=== PATIENT | female | born 1940 | race Caucasian/White ===

== ENCOUNTER 2023-03-19 15:21 | Inpatient (IN) | payer OTHER, SELFPAY ==
[2023-03-19] VITALS (29 sets, daily range): BP systolic 105–170; BP diastolic 46–124; PULSE 2–92; BMI 41.4
--- NOTE | 2023-03-19 13:00 | ED.GENMED ---
History of Present Illness
General
Chief Complaint: Chest Pain
Source: patient
Exam Limitations: none
Time Seen by Provider: 03/19/23 13:00
Nursing documentation reviewed up to this point in time: agreed with
History of Present Illness
History of Present Illness:
82-year-old female presents emergency complaining of chest pain. She has had chest pain ongoing, but it is worse with exertion. She was seen at endocrinology office who noted low blood pressure and' EKG changes'. She follows with Dr. Bolanos, and
has a history of coronary artery disease, and has had stents placed in the past. She does not take any blood thinners. She takes aspirin, but did not take it today.
Past History
Past History
ED Past Medical History: CAD (1 stent), HTN, IDDM and Other (fracture distal left fibula with 'it didn't heal properly.')
ED Past Surgical History: and Gynecological
Social History
Tobacco: Non-smoker
Alcohol: None
Drug: None
Personal:
Living: with family
Employment: Employed
Family History
Family History: Other (Noncontributory)
Review of Systems
Review of Systems
Allergies reviewed?: Yes
All Other Systems: Not applicable
Constitutional: Reports no symptoms
EENT: Reports no symptoms
Respiratory: Reports no symptoms
Cardiac: Reports chest pain
ABD/GI: Reports no symptoms
: Reports no symptoms
Musculoskeletal: Reports no symptoms
Skin: Reports no symptoms
Neurological: Reports no symptoms
Endocrine: Reports no symptoms
Hematologic/Lymphatic: Reports no symptoms
Psychiatric: Reports no symptoms
Phy Exam
Physical Exam
Physical Exam:
Physical Exam
General: Afebrile, blood pressure 111/47
Neck: supple. no meningeal signs. normal posterior pharynx
Heart: s1/s2 regular rate and rhythm, no murmur. equal radial
pulses.
HEENT: Pupils equal round reactive to light, EOMI
Lungs: no acute respiratory distress. clear bilaterally
Abdomen: normal bowel sounds. not tender. no CVAT
Neuro: alert and oriented. no focal neurological deficits cranial nerves II through XII intact
Skin: no rash
Psychiatric: well kept. interactive and cooperative
Extremities: no edema. no calf tenderness. negative homans. good distal pulses
Scores
Heart Score for Chest Pain Patients
STEMI patient?: Yes
Course
Orders/Labs/Results
Orders:
Orders
03/19/23 12:46
EKG [Electrocardiogram (*1)] Urgent
Reason for Study: Chest Pain
03/19/23 12:47
EKG- Treatment ONCE
03/19/23 12:57
Complete Blood Count/With Diff Urgent
Comprehensive Metabolic Panel Urgent
NT-proBNP Urgent
PTT Urgent
Troponin I Urgent
03/19/23 13:02
Fentanyl Citrate/Pf [Sublimaze] 100 mcg .ROUTE .STK-MED ONE
Midazolam HCl [Versed] 2 mg .ROUTE .STK-MED ONE
03/19/23 13:06
CXR [CR Chest Portable - 1 View] Routine
Comment:
Reason For Exam: pre MRI
Reason Study Needs to be Portable: Unable to Transport
Abnormal Lab Results
03/19/23
12:57
BUN 33 H mg/dl
(7-17)
Creatinine 1.2 H mg/dL
(0.6-1.0)
Glucose 169 H mg/dl
(70-99)
AST 72 H U/L
(14-36)
ALT 44 H U/L
(0-35)
Alkaline Phosphatase 139 H U/L
(38-126)
Total Protein 6.1 L g/dl
(6.3-8.2)
03/19/23 12:57
Vital Signs
Initial and Last Documented VS:
Initial Vital Signs
Temp Pulse Resp BP Pulse Ox
98.0 F 91 18 111/47 99
03/19/23 13:02 03/19/23 13:02 03/19/23 13:02 03/19/23 13:02 03/19/23 13:02
Last Documented Vital Signs
Temp Pulse Resp BP Pulse Ox
98.0 F 91 18 111/47 99
03/19/23 13:02 03/19/23 13:02 03/19/23 13:02 03/19/23 13:02 03/19/23 13:02
MDM/Problems Addressed
Differential Diagnosis Includes:
ACS, STEMI
MDM/Problems Addressed:
82-year-old female with STEMI. Exertional chest pain. Heparin, Brilinta, aspirin given. STEMI alert activated upon my viewing of EKG. Discussed with Dr. Dean, who will evaluate patient and take to Preschool Program Director.
Chronic conditions affecting care: DM and CAD
Acute Exacerbation and/or Progression of Chronic Illness: DM and CAD
*Pulse Oximetry
Patient hypoxic: no
*EKG
Interpreted by ED Provider?: Yes
EKG Intrepretation Date: 03/19/23
EKG Intrepretation Time: 12:49
Interpretation: abnormal
Comparison EKG: changes noted
Heart Rate: 87
Rate: normal
Rhythm: sinus
[place]: normal axis
Interval: normal interval
QRS Pattern: normal QRS
Ischemia: ST elevation
*[employer] Interpretation
Rate: normal
Interpretation: normal
Heart Rate: 88
*Critical Care Note
Total Time (30-74mins, 75-104mins- exclusive of procedures): Not Applicable
Data Reviewed
Review of Other/Old Records Reveals: Testing (echo 05/03/2022 shows EF 55 to 60%, mild concentric LVH)
Source: records
Patient Management
Discussion with other providers: Process Laboratory Specialist (Cardiology, Dr. Dean)
Escalation/DeEscalation of care consider admission/obs:
Admit indicated
ED Attending Note
-
Portions of this chart may have been created with voice recognition software.� Occasional wrong word or��sound alike� substitutions may have occurred due to the inherent limitations of voice recognition software.
Discharge Plan
Departure
Patient Disposition: POULTRY INSPECTOR
Date of Disposition: 03/19/23
Time of Disposition: 13:00
Admit to: logging rafter laborer
Presentation/result/management discussed w/ accepting MD/DO: Cardiology Dr. Dean
Patient with high blood pressure during this ER visit?: No
Condition: Good
Discharge Problem:
ST elevation (STEMI) myocardial infarction
Prescriptions:
No Action
levothyroxine 75 MCG tablet
75 mcg PO SUMOTUTHFRSA
loratadine 10 MG tablet
10 mg PO DAILY
insulin lispro [Humalog KwikPen Insulin] 100 UNIT/ML insulin pen
0 units SC AC
Patient Comments:
08/07/2017 20-45 units before each meal
docosahexaenoic acid-epa 1 CAP capsule
1,200 mg PO HS
duloxetine 30 MG capsule,delayed release(DR/EC)
30 mg PO HS
coenzyme Q10 [Co Q-10] 200 MG capsule
200 mg PO DAILY
vitamins A,C,K-ethf-dntqqj [PreserVision AREDS] 1 CAP capsule
1 cap PO QPM
insulin degludec [Tresiba FlexTouch U-200] 200 UNIT/ML insulin pen
70 unit SQ HS
biotin 5,000 MCG tablet,disintegrating
5,000 mcg PO QPM
nitroglycerin 0.4 MG tablet, sublingual
0.4 mg sublingual [id number] PRN (Reason: chest pain) Qty: 25 3RF
furosemide 40 MG tablet
40 mg PO BID
isosorbide mononitrate 30 MG tablet extended release 24 hr
30 mg PO DAILY
levothyroxine 75 MCG tablet
150 mcg PO WE
labetalol 300 MG tablet
300 mg PO BID
guaifenesin [Mucus Relief ER] 600 MG tablet extended release 12hr
1,200 mg PO Q12
atorvastatin 20 MG tablet
20 mg PO HS
clopidogrel 75 MG tablet
75 mg PO HS
aspirin 81 MG tablet,chewable
81 mg PO HS
cholecalciferol (vitamin D3) 1,000 UNITS tablet
2,000 units PO DAILY
valsartan 80 MG tablet
320 mg PO QPM
amlodipine 5 MG tablet
5 mg PO BID 30 Days Qty: 60 0RF
azelastine 1 SPRAY aerosol,spray
1 spray intranasal BID Qty: 1 0RF
hydrocodone-acetaminophen [[place]] 1 EACH tablet
1 ea PO QID PRN (Reason: pain) Qty: 10 0RF
meloxicam 7.5 MG tablet
7.5 mg PO BID Qty: 14 0RF
Referrals:
Caroline Cole CRNP [Family Provider] -
Interventions
Interventions:
*Risk Screen - Suicide Last Done: 03/19/23 13:02
*General Assessment Last Done: 03/19/23 13:02
*Neglect/Abuse Screening Last Done: 03/19/23 13:02
ED- Fall Risk Assessment Last Done: 03/19/23 13:04
*ED COVID-19 Vaccine History Last Done: 03/19/23 13:25
*Nursing Disposition Last Done: 03/19/23 13:26
ED- Cardiac Assessment Last Done: 03/19/23 13:04
Discharge Date and Time
Discharge Date/Time: 03/19/23 13:27
[2023-03-19 13:23] LABS: APTT 33.5 Sec (23.4-35.0)
[2023-03-19 13:24] LABS: % Basophils 0.2 % (0-2); % Eosinophils 1.3 % (0-6); % Immature Granulocytes 0.2 % (0-0.5); % Lymphocytes 23.7 % (20.5-51.1); % Monocytes 10.4 % (1.7-9.3); % Neutrophils 64.2 % (42.2-75.2); ALT (SGPT) 44 U/L (0-35); AST (SGOT) 72 U/L (14-36); Absolute Eosinophils 0.1 10^3/uL (0-0.7); Absolute Lymphocytes 1.9 10^3/uL (1.2-3.4); Absolute Monocytes 0.9 10^3/uL (0.1-0.6); Absolute Neutrophils 5.2 10^3/uL (1.4-6.5); Albumin 3.8 g/dl (3.5-5.0); Alkaline Phosphatase 139 U/L (38-126); Blood Urea Nitrogen 33 mg/dl (7-17); Calcium 9.2 mg/dl (8.4-10.2); Carbon Dioxide 24 mmol/L (22-30); Chloride 101 mmol/L (98-107); Glucose 169 mg/dl (70-99); Hematocrit 32.5 % (37.0-47.0); Hemoglobin 10.8 g/dL (12.0-16.0); Mean Corp Hgb Conc. 33.2 g/dL (33.0-37.0); Mean Corpuscular Hgb 29.7 pg (27.0-31.0); Mean Corpuscular Volume 89.3 fL (81.0-99.0); Mean Platelet Volume 10.6 fL (7.4-10.4); Nucleated Red Blood Cells % 0 %; Platelet Count 193 10^3/uL (130-400); Red Blood Cell Count 3.64 10^6/uL (4.20-5.40); Red Cell Dist. Width 13.3 % (11.5-14.5); Sodium 138 mmol/L (135-145); Total Bilirubin 0.8 mg/dl (0.2-1.3); Total Protein 6.1 g/dl (6.3-8.2); White Blood Cell Count 8.2 10^3/uL (4.8-10.8); eGFR 45.19
--- NOTE | 2023-03-19 13:34 | CON.CAR ---
Consultation
Consultation Request
Reason for Consultation: STEMI
Medical History
-
Chief Complaint: Inferior STEMI
History of Present Illness:
82 yo WF h/o CAD prior PCI LAD 2016, HTN, Hyperlipidemia statin intolerant, DM2 with associated macular degeneration and peripheral neuropathy, CKD3a, and obesity. She has been having intermittent chest pains for the last 3-6 months with associated
dyspnea. She was at her remote coders (Dr. Garcia) office when she told him she was having chest pain, hypotension and EKG was done with new changes and she was sent to ER. On arrival EKG with ST elevations inferiorly, Heparin, ASA, and
Brilinta were given. She was brought urgently to the manager cath lab.
Past Medical History
Past Medical History: CAD (PCI LAD 12/27/2016, residual RCA stenosis ), HTN, Hypercholesterolemia, NIDDM (Macular degeneration, peripheral neuropathy), Psychiatric (Anxiety, depression) and Other (vertigo)
Past Surgical History: Gynecological (RICHA 1970)
Social History
Tobacco: Non-Smoker
Alcohol: None
Personal:
Living: With Family (cares for with cancer)
Family History
Family History: Reviewed & Not Pertinent
Allergies / Home Medications
Allergy/AdvReac Type Severity Reaction Status Date / Time
Sulfa (Sulfonamide Allergy Unknown Verified 03/19/23 13:02
Antibiotics)
[Sulfa(Sulfonamide
Antibiotics)]
Medication Instructions Recorded Confirmed Type
biotin 5,000 mcg disintegrating 5,000 mcg PO QPM 12/26/16 08/07/17 History
tablet
coenzyme Q10 200 mg capsule (Co 200 mg PO DAILY 12/26/16 08/07/17 History
Q-10)
docosahexaenoic acid (dha)-epa 1,200 mg PO HS 12/26/16 08/07/17 History
capsule
duloxetine 30 mg capsule,delayed 30 mg PO HS 12/26/16 08/07/17 History
release
insulin degludec 200 unit/mL (3 70 unit SQ HS 12/26/16 08/07/17 History
mL) subcutaneous pen (Tresiba
FlexTouch U-200 insulin)
insulin lispro 100 unit/mL 0 units SC AC 12/26/16 08/07/17 History
subcutaneous pen (Humalog KwikPen
(U-100) Insulin)
levothyroxine 75 mcg tablet 75 mcg PO SUMOTUTHFRSA 12/26/16 08/07/17 History
loratadine 10 mg tablet 10 mg PO DAILY 12/26/16 08/07/17 History
vitamins A,C,S-cdju-mtojds 4,296 1 cap PO QPM 12/26/16 08/07/17 History
mcg-226 mg-90 mg capsule
(PreserVision AREDS)
nitroglycerin 0.4 mg sublingual 0.4 mg sublingual [id number] PRN 12/27/16 08/07/17 Rx
tablet chest pain #25 tabs
aspirin 81 mg chewable tablet 81 mg PO HS 08/07/17 08/07/17 History
atorvastatin 20 mg tablet 20 mg PO HS 08/07/17 08/07/17 History
cholecalciferol (vitamin D3) 25 2,000 units PO DAILY 08/07/17 08/07/17 History
mcg (1,000 unit) tablet
clopidogrel 75 mg tablet 75 mg PO HS 08/07/17 08/07/17 History
furosemide 40 mg tablet 40 mg PO BID 08/07/17 08/07/17 History
guaifenesin 600 mg tablet, 1,200 mg PO Q12 08/07/17 08/07/17 History
extended release 12 hr (Mucus
Relief ER)
isosorbide mononitrate 30 mg 30 mg PO DAILY 08/07/17 08/07/17 History
tablet,extended release 24 hr
labetalol 300 mg tablet 300 mg PO BID 08/07/17 08/07/17 History
levothyroxine 75 mcg tablet 150 mcg PO WE 08/07/17 08/07/17 History
valsartan 80 mg tablet 320 mg PO QPM 08/07/17 08/07/17 History
amlodipine 5 mg tablet 5 mg PO BID 30 days ##60 08/08/17 Rx
azelastine 137 mcg (0.1 %) nasal 1 spray intranasal BID ##1 08/08/17 Rx
spray aerosol
hydrocodone 5 mg-acetaminophen 325 1 ea PO QID PRN pain #10 tabs 04/27/18 Rx
mg tablet ([place])
meloxicam 7.5 mg tablet 7.5 mg PO BID #14 tabs 04/27/18 Rx
Review of Systems
-
Respiratory: Trouble Breathing
Cardiac: Chest Pain (08/19 on arrival to manager cath lab)
Physical Exam
Vital Signs
Temp Pulse Resp BP Pulse Ox
98.0 F 91 18 111/47 99
03/19/23 13:02 03/19/23 13:02 03/19/23 13:02 03/19/23 13:02 03/19/23 13:02
Lab Results
03/19/23 12:57
03/19/23 12:57
Physical Exam
General: Pain (deferred d/t being prepped and drapped on manager cath lab table for urgent procedure)
Impression / Plan
-
PCP: CHELSY Carreon
Primary Brazing Machine Tender: Neeraj Bolanos MD
Impression/Plan:
#Inferior STEMI/CAD - prior PCI LAD 2017, emergent LHC
serial troponin to peak, Echo
DAPT ASA/Brilinta, CM to eval cost
continue valsartan, labetalol
cardiac rehab c/s
f/u cbc
#HTN - continue amlodipine, labetalol, valsartan
#Hyperlipidemia statin intolerance - check CVE, stopped Zetia d/t cost, failed Praluent d/t cost, statins caused myalgias
#NIDDM - Check A1c, continue repaglinide 4mg daily, Jardiance 25mg, SSI
#CKD3a - trend Cr post cath, labs pending
#hypothyroidism
#chronic back pain
continue to monitor on tele at least 48 hrs post procedure
Data Reviewed
-
Medical Tests (Nuc Med, Echo etc): Report Reviewed by me
Labs: Labs Reviewed by me
[2023-03-19 13:36] LABS: ACT-LR - POC 244 Seconds (116-155)
[2023-03-19 13:37] LABS: NT-proBNP 4240 pg/ml; Troponin I 0.709 ng/ml
[2023-03-19 13:43] LABS: Potassium 4.2 mmol/L (3.5-5.1)
[2023-03-19 13:53] LABS: ACT-LR - POC 260 Seconds (116-155)
[2023-03-19 14:14] LABS: ACT-LR - POC 282 Seconds (116-155)
[2023-03-19 14:36] LABS: ACT-LR - POC 318 Seconds (116-155)
--- NOTE | 2023-03-19 15:10 | CON.INTV ---
Consultation
Consultation Request
Date/Time Consultation Requested: 03/19/2023-3:15 PM
Date/Time Consultation Performed: 03/19/2023-3:30 PM
Requesting Provider: Hospitalist
Performing Provider: Dr. Carrillo
Reason for Consultation: Flash pulmonary edema
Medical History
-
Chief Complaint: Shortness of breath
History of Present Illness:
82-year-old female with a history of hypertension, hyperlipidemia, CAD with prior PCI to the LAD in 2017 who also has diabetes, chronic kidney disease, obesity has complained of intermittent chest pains for the last 3 to 6 months and presented with
chest pain, EKG changes and went to cardiac catheterization lab-noted to have flash pulm edema requiring BiPAP-lithographic proofer consulted for CHF/BiPAP/critical care management 03/19/2023. Patient is seen in the medical intensive care unit. She has BiPAP
on board. She is comfortable with it. She denies any current chest pain, shoulder pain, chest congestion, productive cough, shortness of breath at rest, abdominal pain, nausea, weakness, or increased leg swelling. She has never been told she had
obstructive sleep apnea.
Past Medical History
Past Medical History: None (Hypertension. Hyperlipidemia. Diabetes type 2. Chronic kidney disease stage III. Hypothyroid. Chronic back pain. Obesity. CAD with prior PCI-LAD 2016. Macular degeneration. Anxiety. Depression. Vertigo. RICHA
1970.)
Social History
Tobacco: Non-smoker
Alcohol: None
Drug: None
Personal:
Living: With Family (Cares for her with cancer)
Occupational Exposures: No known asbestos exposure
Environmental Exposures: No known tuberculosis exposure
Family History
Family History: Reviewed & Not Pertinent and Other (Vkmadr-xpytvt-lltr cancer. Father-CAD and diabetes. 2 sons diabetic.)
Allergies / Home Medications
Allergies
Allergy/AdvReac Type Severity Reaction Status Date / Time
Sulfa (Sulfonamide Allergy Unknown Verified 03/19/23 13:02
Antibiotics)
[Sulfa(Sulfonamide
Antibiotics)]
Home Medications
Medication Instructions Recorded Confirmed Last Taken Type
biotin 5,000 mcg disintegrating 5,000 mcg PO QPM 12/26/16 08/07/17 08/06/17 History
tablet
coenzyme Q10 200 mg capsule (Co 200 mg PO DAILY 12/26/16 08/07/17 08/07/17 History
Q-10)
docosahexaenoic acid (dha)-epa 1,200 mg PO HS 12/26/16 08/07/17 08/06/17 History
capsule
duloxetine 30 mg capsule,delayed 30 mg PO HS 12/26/16 08/07/17 08/06/17 History
release
insulin degludec 200 unit/mL (3 70 unit SQ HS 12/26/16 08/07/17 08/06/17 History
mL) subcutaneous pen (Tresiba
FlexTouch U-200 insulin)
insulin lispro 100 unit/mL 0 units SC AC 12/26/16 08/07/17 08/07/17 History
subcutaneous pen (Humalog KwikPen
(U-100) Insulin)
levothyroxine 75 mcg tablet 75 mcg PO SUMOTUTHFRSA 12/26/16 08/07/17 08/07/17 History
loratadine 10 mg tablet 10 mg PO DAILY 12/26/16 08/07/17 08/07/17 History
vitamins A,C,Z-pqgk-niwbor 4,296 1 cap PO QPM 12/26/16 08/07/17 08/06/17 History
mcg-226 mg-90 mg capsule
(PreserVision AREDS)
nitroglycerin 0.4 mg sublingual 0.4 mg sublingual [id number] PRN 12/27/16 08/07/17 Unknown Rx
tablet chest pain #25 tabs
aspirin 81 mg chewable tablet 81 mg PO HS 08/07/17 08/07/17 08/06/17 History
atorvastatin 20 mg tablet 20 mg PO HS 06/08/07/17 08/06/17 History
cholecalciferol (vitamin D3) 25 2,000 units PO DAILY 08/07/17 08/07/17 08/07/17 History
mcg (1,000 unit) tablet
clopidogrel 75 mg tablet 75 mg PO HS 08/07/17 08/07/17 08/06/17 History
furosemide 40 mg tablet 40 mg PO BID 08/07/17 08/07/17 08/07/17 History
guaifenesin 600 mg tablet, 1,200 mg PO Q12 08/07/17 08/07/17 08/07/17 History
extended release 12 hr (Mucus
Relief ER)
isosorbide mononitrate 30 mg 30 mg PO DAILY 08/07/17 08/07/17 08/07/17 History
tablet,extended release 24 hr
labetalol 300 mg tablet 300 mg PO BID 08/07/17 08/07/17 08/07/17 History
levothyroxine 75 mcg tablet 150 mcg PO WE 08/07/17 08/07/17 08/06/17 History
valsartan 80 mg tablet 320 mg PO QPM 08/07/17 08/07/17 08/06/17 History
amlodipine 5 mg tablet 5 mg PO BID 30 days ##60 08/08/17 Unknown Rx
azelastine 137 mcg (0.1 %) nasal 1 spray intranasal BID ##1 08/08/17 Unknown Rx
spray aerosol
hydrocodone 5 mg-acetaminophen 325 1 ea PO QID PRN pain #10 tabs 04/27/18 Unknown Rx
mg tablet ([place])
meloxicam 7.5 mg tablet 7.5 mg PO BID #14 tabs 04/27/18 Unknown Rx
Review of Systems
-
Unable to Obtain full review of systems at this time due to: Other (Per HPI)
Vitals / Labs / Diagnostic Testing
Vital Signs
Temp Pulse Resp BP Pulse Ox
98.0 F 91 18 111/47 99
03/19/23 13:02 03/19/23 13:02 03/19/23 13:02 03/19/23 13:02 03/19/23 13:02
Lab Data
03/19/23 12:57
03/19/23 12:57
Laboratory Results
03/19/23
12:57
APTT 33.5
Diagnostic Testing:
Physical Exam
-
Exam:
Well-nourished and well-developed in no apparent distress
HEENT-atraumatic, normocephalic, BiPAP on board
Neck-supple, no JVD, no bruit
Heart regular with systolic murmur
Chest with crackles at the bases
Back-no tenderness
Abdomen-soft, nontender, nondistended, no hepatosplenomegaly
Extremities-no cyanosis, clubbing, peripheral edema
Integument-intact, no rashes, lesions or ecchymosis
Neurology-alert and oriented, nonfocal motor and sensory exam
Assessment
-
82-year-old female with a history of hypertension, hyperlipidemia, CAD with prior PCI to the LAD in 2017 who also has diabetes, chronic kidney disease, obesity has complained of intermittent chest pains for the last 3 to 6 months and presented with
chest pain, EKG changes and went to cardiac catheterization lab-noted to have flash pulm edema requiring BiPAP-lithographic proofer consulted for CHF/BiPAP/critical care management 03/19/2023.
Assessment
Inferior STEMI/CAD-prior PCI to LAD 2016
Elevated troponin-0.7
Emergent left heart catheterization 03/19/2023-PCI mid OM1
CHF-EF unknown-requiring BiPAP
Mild dllcvr-mzigcmordh-uliukjpror 10.8
Hyperglycemia-blood sugar 169
Transaminitis
Conditions present prior to admission:
Hypertension.
Hyperlipidemia.
Diabetes type 2.
Chronic kidney disease stage III.
Hypothyroid.
Chronic back pain.
Obesity.
CAD with prior PCI-LAD 2016.
Macular degeneration.
GERD
Anxiety.
Depression.
Vertigo.
Osteoarthritis
Neuropathy
Postnasal drip
RICHA 1970. Fracture distal left tibia. Hysterectomy. .
Family history lung nofzyf-Vvrooo-rmsido
Plan
Patient will be admitted to medical intensive care unit
Supplemental oxygen will be provided
BiPAP as needed
Noninvasive ventilation if needed
Intubated mechanically ventilated if needed
Aspiration precautions
Nebulizers if needed-currently not bronchospastic
Cardiology following-correspondence reviewed
Trend troponin
Diuresis as tolerated
Monitor renal function, electrolytes, intake/output, lower extremity edema and weight
Replace electrolytes as needed
Left heart catheterization 03/19/2023-status post stent to OM1
Follow hemoglobin
Transfuse as needed
Follow-up LFTs
Monitor blood sugar
Insulin supplementation as needed
DVT prophylaxis
GI prophylaxis-on pantoprazole
Early nutrition
Early mobilization
Consider outpatient sleep disordered breathing/obstructive sleep apnea workup
Critical care statement: A total of 45 minutes of critical care time was provided for this patient today. This includes management of unstable vital signs, evaluation of the patient at bedside, reviewing the patient's pertinent medical records
including radiographs, microbiology, laboratory evaluations, and discussion with primary team, consultants, pharmacy, nutrition, physical therapy, case management, charge nurse, critical care nursing, and respiratory therapy.
Diagnostic data:
Chest x-ray 08/07/2017-NAD
Echocardiogram 04/29/2022-EF 55-60%, no significant valvular disease
Data Reviewed
-
EKG: Report reviewed by me
Radiology: Report reviewed by me
Medical Tests (Nuc Med, Echo etc): Report reviewed by me
Labs: Labs reviewed by me
Old Records: Reviewed
Critical Care Time (in minutes): 45
[2023-03-19 15:12] LABS: B.E. -3.2 mmol/L; HCO3 24.9 mmol/L (21-28); O2 Saturation % 93.4 % (94-98); PCO2 58 mmHg (32-35); PO2 73 mmHg (83-108); pH 7.24 (7.35-7.45)
--- NOTE | 2023-03-19 15:57 | ITS.CL.CATH ---
Computer Graphic Artist - Catheterization
Cardiac Catheterization
Procedure Report:
LEFT HEART CATHETERIZATION AND CORONARY INTERVENTION
Date of Procedure: March 19, 2023
Referring: [place] emergency department
PROCEDURES:
1. Left catheterization, coronary angiogram.
2. Ultrasound-guided access.
3. Successful PCI of a hazy 95% on mid OM1 lesion with a 3.0 x 18 mm Xience stephan point drug-eluting stent, postdilated using a 3.5 x 15 mm noncompliant balloon up to 18 pavan with an excellent angiographic result.
INDICATION: Ms. Rodriguez is a 82-year-old morbidly obese female with past medical history of hypertension, hyperlipidemia, statin intolerant, previously on Zetia and Praluent however these were discontinued due to financial reasons, macular
degeneration, longstanding type 2 diabetes mellitus complicated by peripheral neuropathy and CKD stage IIIa, coronary artery disease status post PCI to mid LAD in December 2016 with moderate RCA disease, anxiety/depression who has been having
intermittent left-sided chest and shoulder blade discomfort for the last 3 to 4 months associated with dyspnea on exertion. She was at her endocrinology appointment this morning and was noted to be hypotensive and complaining of chest discomfort in
the setting which led to an ECG being done which showed new Q waves and ST elevations in inferior leads with tall R waves in V1 and V2 associated with ST depressions concerning for a possible acute or recent inferoposterior infarct. ECG was
reviewed with her outpatient back tender pulp drier supposedly and patient was directed to be sent to the emergency department emergently. When patient presented to the emergency department, a STEMI alert was called. Upon evaluation patient had stable
hemodynamics with mild left-sided chest discomfort. She was given 5000 units of unfractionated IV heparin, full dose aspirin, 180 mg of Brilinta. After detailed informed consent she was emergently brought up to the heart catheterization lab.
ACCESS: Right radial artery, 6 [place] sheath, under ultrasound guidance.
HEMODYNAMICS : (mmHg)
AO (s/d) : 122/71 (mean 91)
Attempt was made to cross the aortic valve into the LV however we were unsuccessful. Given patient's tenuous respiratory status and increased work of breathing, we did not try for a long time.
CORONARY FINDINGS
DOMINANCE: Right
LEFT MAIN: The left main artery is a large-caliber vessel which gives rise to the left anterior descending artery and the left circumflex artery. There is mild distal tapering.
LEFT ANTERIOR DESCENDING: The left anterior descending artery is a medium to large caliber vessel which gives rise to multiple small caliber diagonal branches. There are is a calcified 30 to 40% ostial LAD stenosis. Mid LAD has a focal calcified
80 to 90% stenosis proximal to prior stent. There is also a 70% stenosis in the distal LAD distal to prior stent. LAD itself is a diffusely calcified and diseased vessel.
CIRCUMFLEX: The left circumflex artery is a medium caliber vessel which gives rise to 1 major obtuse marginal branch. In the midportion of OM1 there is a hazy 95% stenosis.
RIGHT CORONARY ARTERY: The right coronary is a medium caliber vessel with 100% mid occlusion with faint right to right collaterals. Proximal to mid RCA has mild diffuse atherosclerotic plaque. Initially given her EKG changes, the RCA was thought
to be the culprit occlusion for her presenting acute coronary syndrome however once we attempted intervention, given it was behaving like a chronic total occlusion, no interventions were performed and attention was diverted to the mid OM 1 stenosis
(see details below)
CORONARY INTERVENTION: Initially attempt was made to selectively engage with the left coronary artery to shoot ' nonculprit' vessels first given based on the EKG we suspected RCA to be the culprit vessel. Despite using a 5 [place] JL 4 and JL 5
diagnostic catheters we unfortunately could not selectively engage the left coronary artery. At this time given ongoing chest discomfort and ST elevations, we decided to move forward with RCA images. The right coronary artery was selectively
engaged using a 6 [place] JR4 guide catheter. Additional heparin was given to maintain a therapeutic ACT throughout the case. Noting the mid RCA occlusion, we attempted navigating a wire across this lesion thinking that it may be an acute lesion
however despite multiple attempts we failed crossing with a 190 cm 0.014' BMW wire. At this time we brought in a 300 cm 0.014' Spar Finisher 50 wire and despite multiple attempts we still could not cross this lesion and it kept behaving very much like a
chronically occluded vessel. At this point we decided to abort and get shots of the left coronary artery looking for potential collaterals to the RCA and a possible culprit lesion in the left system. This time we brought in a 5 [place] JL 3.5
diagnostic catheter and were able to selectively engaged into the left coronary artery. There were 2 high-grade lesions noted in the mid LAD and mid portion of the OM1 however no obvious mqpq-dy-wtofi collaterals were noted. DOROTA-3 flow was noted
in both of these vessels. Therefore based on the EKG findings we decided to bring back in the JR4 guide and try wire escalation. I also consulted with my senior interventional partner, Dr. Fahad Pickard, and we agreed to try with a Fielder XT based
on her presenting EKG. We reengaged with the JR4 guide catheter and after multiple attempts with a Fielder XT (using a FRUIT BUYER bend), we were able to advance our wire into the distal vessel. At this point we brought in a 0.014' Johanna microcatheter to
ensure we were intraluminal given advancement of the Fielder XT took a bit of effort. Through the microcatheter we injected the distal vessel and noted that we were in the distal RCA with the branch vessels appearing diffusely diseased. I reviewed
the images again with Dr. Fahad Pickard and we agreed that the right coronary artery was behaving very much like a chronic total occlusion and has decided to abort further interventions here. At this point we decided to change her attention to the
mid OM1 lesion as a possible acute culprit given its haziness.
We selectively engaged the left coronary artery using a 6 [place] EBU 3.5 guide catheter and decision was made to move forward with percutaneous coronary intervention of the mid OM1 lesion. At this point patient noted increase in her shortness of
breath and told us that she has not been able to lay flat and has been sleeping in a recliner for the last 2 to 3 years at least due to orthopnea. We gave her 80 mg of IV Lasix and worked expeditiously to intervene on the mid OM1 lesion worried
that that may have been the culprit lesion for her presenting ACS. A 190 cm 0.014' BMW wire was successfully advanced into the distal OM. The lesion was predilated using a 3.0 x 12 mm semi-compliant trek balloon with good expansion. We
subsequently stented the lesion with a 3.0 x 18 mm Xience stephan point drug-eluting stent and postdilated the stent with a 3.0 x 15 mm NC trek balloon with an excellent angiographic result. Patient's work of breathing progressively worsened and we had
to urgently sit her up and call respiratory to bring down a BiPAP machine to help support her respiratory status. At the end of the case she had started to diurese, was hemodynamically stable and also appeared more stable from a respiratory
standpoint with the BiPAP machine on. She was transferred to the ICU in stable condition. An ABG was drawn before removal of the radial sheath right when the BiPAP machine was put on.
SEDATION: 98 minutes of procedural sedation was utilized. An independent medical assembly was present to assist with and help manage the patient's level of consciousness and physiologic status.
RADIATION SUMMARY: Fluoro Time (min): 33.3, Dose (mGy): 2140.6, DAP (Gy.cm2) : 153.8
Closure Device: Vascular band over right radial artery, 14 cc of air.
CONCLUSIONS
1. Successful PCI of a hazy 95% on mid OM1 lesion with a 3.0 x 18 mm Xience stephan point drug-eluting stent, postdilated using a 3.5 x 15 mm noncompliant balloon up to 18 pavan with an excellent angiographic result.
2. 100% chronic total occlusion of the right coronary artery with faint right to right collaterals.
3. Diffusely calcified and diseased left anterior descending artery with a high-grade 80 to 90% stenosis in the mid LAD and a 70% stenosis in the distal LAD proximal and distal to prior stent, respectively.
RECOMMENDATIONS
1. Uninterrupted dual antiplatelet therapy with daily baby aspirin and Brilinta 90 mg twice daily. Prior statin intolerance noted. Plan to have case management look into cost again for Zetia and PCSK9 inhibitor in case it is now affordable.
Beta-chema as tolerated.
2. Aggressive IV diuresis and wean BiPAP as tolerated.
3. Wean radial band per protocol.
4. Full echocardiogram to assess biventricular function and rule out any significant valvular disease.
5. Discussed staged PCI of LAD prior to discharge.
6. Aggressive management of cardiovascular risk factors.
7. Eventual referral for outpatient cardiac rehab.
Copy to: Neeraj Bolanos
Alicia Dean MD, FACC, [facility]
--- NOTE | 2023-03-19 16:10 | HPS.HSE ---
Family Physician
-
Family Physician: CHELSY Hall
Chief Complaint
-
Chest pain
History of Present Illness
Patient is 82-year-old female with past medical history of coronary disease with LAD stenting, essential hypertension, hyperlipidemia with statin intolerance, insulin-dependent diabetes mellitus, macular degeneration, peripheral neuropathy, CKD
stage IIIa, obesity was sent from endocrinology office after patient was having new onset of chest pain and noted to be hypotensive with dyspnea. Patient had an EKG which was showing new changes suspicious of ACS. In ER EKG showing a segment
elevation in lead II/III/aVF with ST depression in anteroseptal leads. Troponin was elevated 0.7. With patient known history of coronary disease patient was taken to emergently Taxation [employer]ant for new inferior wall NH. Patient was found to having 100%
occlusion of RCA, 90% occlusion of obtuse marginal branch which was stented, and significant LAD disease which needs to be readdressed. During the procedure patient started having significant dyspnea and worsening hypoxia, there was concern of
patient having flash pulmonary edema and patient was placed on BiPAP. ABG showing pH 7.24 pCO2 58 pO2 73. Patient was transferred to ICU for closer monitoring.
In ICU patient sitting up comfortably in bed unable to provide history. Denies of having ongoing chest pain/shortness of breath. Denies of having any nausea/abdominal pain. No other complaints.
Medical History
Past Medical History
Past Medical History: Reports Other
Additional Past Medical History:
coronary disease with LAD stenting, essential hypertension, hyperlipidemia with statin intolerance, insulin-dependent diabetes mellitus, macular degeneration, peripheral neuropathy, CKD stage IIIa, obesity
Past Surgical History: Reports Other
Social History
Tobacco: Non-smoker
Alcohol: None
Drug: None
Living: With Family
Family History
Family History: Not pertinent
Allergies / Home Medications
Allergies reflects when Allergies were last updated in [employer].
Home Medications with original date entered in [employer]
Allergy/Medication List:
Allergies
Allergy/AdvReac Type Severity Reaction Status Date / Time
Sulfa (Sulfonamide Allergy Unknown Verified 03/19/23 13:02
Antibiotics)
[Sulfa(Sulfonamide
Antibiotics)]
Home Medications
biotin 5,000 mcg disintegrating tablet 5,000 mcg PO QPM 12/26/16
coenzyme Q10 200 mg capsule (Co Q-10) 200 mg PO DAILY 12/26/16
docosahexaenoic acid (dha)-epa capsule 1,200 mg PO HS 12/26/16
duloxetine 30 mg capsule,delayed release 30 mg PO HS 12/26/16
insulin degludec 200 unit/mL (3 mL) subcutaneous pen (Tresiba FlexTouch U-200 insulin) 70 unit SQ HS 12/26/16
insulin lispro 100 unit/mL subcutaneous pen (Humalog KwikPen (U-100) Insulin) 0 units SC AC 12/26/16
levothyroxine 75 mcg tablet 75 mcg PO SUMOTUTHFRSA 12/26/16
loratadine 10 mg tablet 10 mg PO DAILY 12/26/16
vitamins A,C,P-iuzp-xqycrw 4,296 mcg-226 mg-90 mg capsule (PreserVision AREDS) 1 cap PO QPM 12/26/16
nitroglycerin 0.4 mg sublingual tablet 0.4 mg sublingual [id number] PRN chest pain #25 tabs 12/27/16
aspirin 81 mg chewable tablet 81 mg PO HS 08/07/17
atorvastatin 20 mg tablet 20 mg PO HS 08/07/17
cholecalciferol (vitamin D3) 25 mcg (1,000 unit) tablet 2,000 units PO DAILY 08/07/17
clopidogrel 75 mg tablet 75 mg PO HS 08/07/17
furosemide 40 mg tablet 40 mg PO BID 08/07/17
guaifenesin 600 mg tablet, extended release 12 hr (Mucus Relief ER) 1,200 mg PO Q12 08/07/17
isosorbide mononitrate 30 mg tablet,extended release 24 hr 30 mg PO DAILY 08/07/17
labetalol 300 mg tablet 300 mg PO BID 08/07/17
levothyroxine 75 mcg tablet 150 mcg PO WE 08/07/17
valsartan 80 mg tablet 320 mg PO QPM 08/07/17
amlodipine 5 mg tablet 5 mg PO BID 30 days ##60 08/08/17
azelastine 137 mcg (0.1 %) nasal spray aerosol 1 spray intranasal BID ##1 08/08/17
hydrocodone 5 mg-acetaminophen 325 mg tablet ([place]) 1 ea PO QID PRN pain #10 tabs 04/27/18
meloxicam 7.5 mg tablet 7.5 mg PO BID #14 tabs 04/27/18
Review of Systems
-
A 12 point ROS was completed and negative except as noted: Yes
Physical Exam
Vital Signs
Vital Signs
Temp Pulse Resp BP Pulse Ox
98.7 F 91 18 111/47 99
03/19/23 15:52 03/19/23 13:02 03/19/23 13:02 03/19/23 13:02 03/19/23 13:02
Physical Exam
General: Respiratory Distress
HEENT: Atraumatic and Oxygen (BiPAP)
Respiratory: Clear
Cardiac: S1/S2 and Regular Rhythm; No Murmur or Rub
GI: Soft, Non Tender and Non Distended; No Organomegaly
Rectal: Deferred by Provider
Musculoskeletal: No Clubbing, No Cyanosis and No Edema
Skin: No Rash
Neuro: Awake, Alert and Nonfocal/grossly intact
Laboratory Results
-
03/19/23 12:57
03/19/23 12:57
Laboratory Results
APTT 33.5 Sec (23.4-35.0) 03/19/23 12:57
pH 7.24 (7.35-7.45) L 03/19/23 15:10
pCO2 58 mmHg (32-35) H 03/19/23 15:10
pO2 73 mmHg (83-108) L 03/19/23 15:10
HCO3 24.9 mmol/L (21-28) 03/19/23 15:10
Total Bilirubin 0.8 mg/dl (0.2-1.3) 03/19/23 12:57
AST 72 U/L (14-36) H 03/19/23 12:57
ALT 44 U/L (0-35) H 03/19/23 12:57
Alkaline Phosphatase 139 U/L (38-126) H 03/19/23 12:57
Troponin I 0.709 ng/ml H* 03/19/23 12:57
Data Reviewed
-
Lab Data: Labs Reviewed by me, Discussed with Patient and Discussed with Family
Impression/Plan
-
1. STEMI
h/o of CAD/PCI
-Given with new onset of chest pain/dyspnea/Hypotension
-EKG showing ST segment elevation in lead II/III/aVF.
-S/p emergent LHC showing 100% occlusion of RCA, 90% occlusion of OM branch which was stented with RONALD 90% mid LAD lesion
-Started on aspirin/Brilinta by cardiology
-Discussed with interventional cardiology, patient likely will require repeat heart cath for addressing LAD lesion
2. Acute hypoxic respiratory failure
Pulmonary edema
-Patient developed new dyspnea and hypoxia during heart catheterization and requiring BiPAP support
-ABG showing pH 7.24 pCO2 58 pO2 73
-Patient transferred to ICU for closer monitoring
3. DOUGLAS on CKD IIIA
-Patient baseline creatinine of 1 with GFR of 53 from 2018. No interim lab to compare
-Creatinine of 1.2 today
-Patient post heart catheterization and with need of contrast at risk of EFFIE, continue monitoring
-Bladder scan ordered
4. Acute transaminitis
-Minimal elevation of LFT, suspected hepatic congestion related
-Follow-up LFT for tomorrow
5. Acute normocytic anemia
-Hemoglobin close to baseline, continue monitor
6. Insulin-dependent diabetes mellitus
-Discussed with pharmacy to verify insulin dose, will be resumed accordingly
-maintained on ISS for now
Essential HTN
Hypothyroidism
HLD -statin intolerance
Depression
-Medication to be restarted post pharmacy confirmation
DVT PPX - lovenox
Full code
Case discussed with interventional cardiology/vp corporate development
Total time spent : 77 mins
I personally saw and examined the patient.
I have reviewed all diagnostic interpretations and treatment plans as written.
Time includes patient management by me, time spent at the patients bedside, time to review lab and imaging results, discussing patient care, documentation in the medical record, and time spent with the family or caregiver and discussing care plan
with RN/Consultants.
--- NOTE | 2023-03-19 16:20 | PTCARENOTE ---
Pt arrived to Rm [id number] via bed from cardiac clinical laboratory science professor at 1545. Pt awake and answering questions appropriately. Denies c/o pain or SOB. BiPap in place at time of arrival (14/5 with 12L O2) per anesthesia. Pt's POx 100%. RR mid 20's. Pt's only complaint
is of wearing BiPap 'it's annoying'. Rt radial artery band in place w/ balloon fully inflated at time of arrival. Site d/in with very slight ecchymosis noted at puncture site. Rt hand dusky but warm to touch w/ radial artery present by doppler
distal to band. Physical assessment completed as documented. Education provided to pt about heart failure/acute DE/ plan of care post cardiac cath w/ intervention. Multiple questions answered and support provided. Admission questions completed. Pt's
to bedside to visit w/ pt- updated on plan of care. Diogenes Clemens and Roni in room to evaluate pt. IVF on hold due to acute CHF/pulmonary edema. Orientation to surroundings/unit routine provided to pt. Call sandhya w/in pt reach and safe
environment maintained.
--- NOTE | 2023-03-19 17:00 | PTCARENOTE ---
Pt removed from BiPap by Resp therapy and placed on O2 at 4l/min w/ POx 93-95%. Audible expiratory wheezes noted at times although pt stating 'my breathing feels so much better'.
[2023-03-19 17:18] LABS: Glucose - Point of Care 197 mg/dl (70-99)
[2023-03-19] MEDS: NOVOLOG FLEXPEN-MODERATE RESISTANCE 1 UNITS SC (17:49)
--- NOTE | 2023-03-19 18:00 | PTCARENOTE ---
Air being removed from radial artery band per ordered intervals and as documented in worklist intervention. No change in ecchymosis noted at puncture site. No bleeding. Pt eating dinner. No complaints of CP. remains attentive at bedside.
[2023-03-19] MEDS: CYMBALTA DELAYED RELEASE 30 MG PO (19:39)
[2023-03-19] MEDS: BRILINTA 90 MG PO (19:39)
--- NOTE | 2023-03-19 20:00 | PTCARENOTE ---
Patient received in bed, AAOX3, pleasant. Sinus tachycardia on monitor,low grade temp, blood pressure as documented. Palpable pulses throughout, trace ankle edema noted. Lungs with scattered expiratory wheeze throughout right, pulse ox 98% on 4L.
Abdomen obese with positive bowel sounds. Thermister pisano draining large amounts of clear yellow urine. right TR band noted. #18 in LAC flushed and patent. Call arthur within reach.
[2023-03-19] MEDS: LANTUS 0.200000000000000011 UNITS SC (22:11)
[2023-03-19] MEDS: TYLENOL 650 MG PO (22:15)
[2023-03-19 22:16] LABS: Glucose - Point of Care 187 mg/dl (70-99)
[2023-03-20] VITALS (20 sets, daily range): BP systolic 98–158; BP diastolic 52–117; PULSE 98; O2SAT 96; BMI 40.3
--- NOTE | 2023-03-20 00:07 | PTCARENOTE ---
patient reassessed, tachypneic at times, oxygen decreased to 2L, pulse ox 98%. labs sent, no other changes in assessment
[2023-03-20 05:12] LABS: Hemoglobin 11.5 g/dL (12.0-16.0); Mean Corp Hgb Conc. 32.9 g/dL (33.0-37.0); Mean Corpuscular Hgb 28.8 pg (27.0-31.0); Mean Corpuscular Volume 87.5 fL (81.0-99.0); Mean Platelet Volume 10.3 fL (7.4-10.4); Platelet Count 235 10^3/uL (130-400); White Blood Cell Count 8.1 10^3/uL (4.8-10.8)
--- NOTE | 2023-03-20 05:15 | PTCARENOTE ---
Patient reassessed, lungs with crackles bibasilar, R>L
[2023-03-20 05:37] LABS: Blood Urea Nitrogen 29 mg/dl (7-17); Calcium 8.8 mg/dl (8.4-10.2); Carbon Dioxide 28 mmol/L (22-30); Chloride 104 mmol/L (98-107); Estimated Creatinine Clearance 41 ml/min; Glucose 104 mg/dl (70-99); HDL Cholesterol 63 mg/dl; LDL Cholesterol, Calculated 133 mg/dl; Potassium 3.8 mmol/L (3.5-5.1); Sodium 138 mmol/L (135-145); Total Cholesterol 225 mg/dl (50-199); Triglyceride 149 mg/dl (10-149); Very Low Density Lipoprotein 29 mg/dl (0-30); eGFR 50.17
[2023-03-20] MEDS: NOVOLOG FLEXPEN-MODERATE RESISTANCE SC (07:37)
[2023-03-20] MEDS: PROTONIX 40 MG PO (07:42)
[2023-03-20] MEDS: CLARITIN 10 MG PO (07:42)
[2023-03-20] MEDS: BRILINTA 90 MG PO ×2 (07:43→19:42)
[2023-03-20] MEDS: SYNTHROID 75 MCG PO (07:43)
[2023-03-20] MEDS: LOW STRENGTH ASPIRIN 81 MG PO (07:43)
--- NOTE | 2023-03-20 07:44 | W.PN.INTV ---
Today's Communication / Plan
Recommendations
Diuresis
Liberate from BiPAP
Wean oxygen
Empiric antibiotics
Transfer out of ICU-call pulmonary if respiratory issues arise
Assessment
-
82-year-old female with a history of hypertension, hyperlipidemia, CAD with prior PCI to the LAD in 2017 who also has diabetes, chronic kidney disease, obesity has complained of intermittent chest pains for the last 3 to 6 months and presented with
chest pain, EKG changes and went to cardiac catheterization lab-noted to have flash pulm edema requiring BiPAP-local sales manager consulted for CHF/BiPAP/critical care management 03/19/2023.
Assessment
Inferior STEMI/CAD-prior PCI to LAD 2016
Elevated troponin-0.7
Emergent left heart catheterization 03/19/2023-PCI mid OM1
CHF-EF unknown-requiring BiPAP
Mild xcaktl-labjjtynqe-lmkvfgjkef 10.8
Hyperglycemia-blood sugar 169
Transaminitis
Pulmonary infiltrate-clinically no significant pneumonia symptomatology
Conditions present prior to admission:
Hypertension.
Hyperlipidemia.
Diabetes type 2.
Chronic kidney disease stage III.
Hypothyroid.
Chronic back pain.
Obesity.
CAD with prior PCI-LAD 2016.
Macular degeneration.
GERD
Anxiety.
Depression.
Vertigo.
Osteoarthritis
Neuropathy
Postnasal drip
RICHA 1971. Fracture distal left tibia. Hysterectomy. .
Family history lung [id number]
Plan
Respiratory status is improved significantly
BiPAP weaned and now on nasal cannula oxygen-attempt to wean
Aspiration precautions
Nebulizers if needed-currently not bronchospastic
Chest x-ray 03/20/2023-left lower lobe infiltrate
Continue to follow
Cardiology following-correspondence reviewed
Trend troponin
Continue diuresis as tolerated
Follow renal function, electrolytes, intake/output, lower extremity edema and weight
Replace electrolytes as needed
Left heart catheterization 03/19/2023-status post stent to OM1
Monitor hemoglobin
Transfuse as needed
Follow-up LFTs
Follow blood sugar
Insulin supplementation as needed
DVT prophylaxis
GI prophylaxis-on pantoprazole
Early nutrition
Early mobilization
Consider outpatient sleep disordered breathing/obstructive sleep apnea workup
Patient remains hemodynamically stable not on pressors and could be transferred out of ICU-call pulmonary if respiratory issues arise
Diagnostic data:
Chest x-ray 08/07/2017-NAD
Echocardiogram 04/29/2022-EF 55-60%, no significant valvular disease
Subjective Dataa
Subjective Data
Date of Service:
Date of Service: March 20, 2023
Chief Complaint: Financial Analysis Advisor Follow Up and Pulmonary Follow Up
Subjective:
Feels much better, no chest pain, shortness of breath, off BiPAP, no abdominal pain
Review of Systems
General: Other (Per HPI)
Objective Data
Data Reviewed
Vital Signs / I&O / Oxygen:
Vital Signs
Temp Pulse Resp BP Pulse Ox
100.0 F 91 21 141/75 92
03/20/23 03:38 03/20/23 06:15 03/20/23 06:15 03/20/23 06:00 03/20/23 06:15
Intake and Output
03/19/23 03/20/23 03/21/23
06:59 06:59 06:59
Intake Total 720 / 720
Output Total 2350 / 2350
Balance -1630 / -1630
SaO2 92
Nasal Cannula flow liters per 4
minute
Physical Exam
General: Respiratory Distress (n) and Comfortable
HEENT: Normocephalic, Anicteric and Other (Thick neck)
Cardiovascular: Regular Rhythm and Murmur
Respiratory: Wheeze (n), Crackles (Basilar-rare), Non-Labored Respirations, Accessory Resp Muscle Use (n) and Stridor (n)
GI: Soft, Non Distended and Non Tender
Neurology: Awake, Alert and No Motor Deficits
Skin: Warm, Good Color, Cyanosis (n) and Jaundice (n)
Labs/Micro/Reports
Lab Data
03/20/23 05:02
03/20/23 05:02
Laboratory Results
03/19/23 03/19/23
12:57 15:10
APTT 33.5
pH 7.24 L
pCO2 58 H
pO2 73 L
HCO3 24.9
O2 Delivery Level Not Reportable
[2023-03-20 07:47] LABS: Glucose - Point of Care 114 mg/dl (70-99)
[2023-03-20] MEDS: TYLENOL 650 MG PO (07:50)
[2023-03-20 09:24] LABS: Glycohemoglobin (HgbA1c) 7.3 % (4.0-5.6)
--- NOTE | 2023-03-20 09:41 | W.PN.CD ---
Addendum entered and electronically signed by Neeraj Bolanos MD 03/20/23 09:47:
crackle right base . check follow up CXR
Original Note:
Today's Communication / Plan
-
post MS and OM stent
Continue DAPT. Cath site fine
fever 101max in 24 hour -
- abx per primary team
- evaluation in progress
Impression / Plan
-
PCP: CHELSY Carreon
Primary Information Systems Security Developer: Neeraj Bolanos MD
Impression/Plan:
#Inferior STEMI/CAD - prior PCI LAD 2017, emergent LHC
- stable. no CP and cath site fine
- LHC 03/19/22 - RCA occluded ( suspected chronic) , successful stentingof 95%mid OM1
- troponin 12
- DAPT ASA/Brilinta,
- continue valsartan, labetalol
-cardiac rehab c/s
- echo
# fever 101max in 24 hour -
- abx per primary team
- evaluation in progress
#HTN - continue amlodipine, labetalol, valsartan
#Hyperlipidemia statin intolerance - check CVE, stopped Zetia d/t cost, failed Praluent d/t cost, statins caused myalgias.
can reassess cost of Praulentt and Repatha as outpatietn
#NIDDM - Check A1c, continue repaglinide 4mg daily, Jardiance 25mg, SSI
#CKD3a - trend Cr post cath, labs pending
#hypothyroidism
#chronic back pain
continue to monitor on tele at least 48 hrs post procedure
Physical Exam
Vital Signs/Labs
Vital Signs
Temp Pulse Resp BP Pulse Ox
100.4 F H 96 20 139/78 94
03/20/23 08:08 03/20/23 07:45 03/20/23 07:45 03/20/23 07:45 03/20/23 07:45
03/19/23 03/20/23 03/21/23
06:59 06:59 06:59
Actual Weight 93.5 kg
03/20/23 05:02
03/20/23 05:02
APTT 33.5 Sec (23.4-35.0) 03/19/23 12:57
Triglycerides 149 mg/dl (10-149) 03/20/23 05:02
LDL Cholesterol, Calc 133 mg/dl 03/20/23 05:02
VLDL Cholesterol, Calc 29 mg/dl (0-30) 03/20/23 05:02
HDL Cholesterol 63 mg/dl 03/20/23 05:02
03/19/23
12:57
Pvv-W-Gnblbsgxeyp Pept 4240
LAB Results
03/19/23 03/19/23 03/20/23
12:57 17:12 00:05
Troponin I 0.709 H* 2.750 H* D 7.990 H* D
03/20/23
07:59
Troponin I 12.000 H* D
Physical Exam
Constitutional: No acute distress
Cardiovascular: Rhythm & rate is regular
Respiratory: Respiratory effort normal
GI: Soft
Neuro/Psych: Alert
Other: Cath Site (fine. right radial)
Data Reviewed
-
Date of Service: March 20, 2023
Medical Decision Making: Review of Case with other Provider
EKG: Ordered by me
Echo: Ordered by me
Medical Tests (PFT, Pathology etc): Image Personally Visualized and interpreted
Labs: Labs Reviewed by me
Critical Care Time (in minutes): 35
[2023-03-20 10:03] LABS: Urine Albumin 2+ (Neg - Trace); Urine Bilirubin 1+ (Negative); Urine Character Slightly Cloudy (Clear); Urine Color Brown; Urine Glucose 3+ (Negative); Urine Ketone Trace (Negative); Urine Leukocyte 1+ (Negative); Urine Nitrite Positive (Negative); Urine Occult Blood 4+ (Negative); Urine Urobilinogen Negative (Neg - 1+)
--- NOTE | 2023-03-20 10:28 | PTCARENOTE ---
Murrell removed per Roni COURTNEY verbal order
--- NOTE | 2023-03-20 10:55 | PTCARENOTE ---
Gave report to receiving IVU RN
[2023-03-20 11:00] LABS: Urine Red Blood Cell >100 /HPF (0-2)
[2023-03-20 11:23] LABS: Glucose - Point of Care 207 mg/dl (70-99)
--- NOTE | 2023-03-20 11:57 | CM ---
Chart reviewed. Patient is independent of ADLS, lives at home with her in a 1 STH, 1 AIDA, does not use any DME but has a rolling walker at home. Plan is for the patient to return home. CM to follow
--- NOTE | 2023-03-20 11:58 | CM ---
Pricing on Brilinta is $47 a month or $131 for a 90 day supply. Patient is agreeable to the cost. I placed a 30 day coupon in the patients red discharge folder.
Pricing on Zetia is nonformulary and will need a prior authorization. 30day supply is $100 and 90 day is $290.
Pricing on Praluent is nonformulary and will need a prior authorization. 30 day supply is $100 and 90 day is $290.
Pricing or Repatha is nonformulary and will need a prior authorization. 30 day supply is $47 a month and $131 for 90 days.
[2023-03-20] MEDS: MIRALAX 17 GRAMS PO (12:37)
[2023-03-20] MEDS: NOVOLOG FLEXPEN-MODERATE RESISTANCE 3 UNITS SC (12:37)
[2023-03-20] MEDS: ZOSYN 50 IV ×2 (12:40→19:41)
--- NOTE | 2023-03-20 14:04 | W.PN.HOSP.TC ---
Today's Communication/Plan
-
Start IV Zosyn
Check urine/blood cultures/COVID
Remove Murrell
Transferred to IVU
Assessment / Plan
Assessment / Plan
1. STEMI
� � h/o of CAD/PCI
-Given with new onset of chest pain/dyspnea/Hypotension
-EKG showing ST segment elevation in lead II/III/aVF.
-S/p emergent LHC showing 100% occlusion of RCA, 90% occlusion of OM branch which was stented with RONALD 90% mid LAD lesion
-Trop 0.70 > LHC > 2.75 > 7.99 > 12 > 11.4
-Started on aspirin/Brilinta by cardiology
-Discussed with interventional cardiology, patient likely will require repeat heart cath for addressing LAD lesion
2.� Acute hypoxic respiratory failure
�� � Pulmonary edema
-Patient developed new dyspnea and hypoxia during heart catheterization and requiring BiPAP support
-ABG showing pH 7.24 pCO2 58 pO2 73 post cath
-Patient was monitored in ICU overnight and currently off of BiPAP/NC
3. Fever episode
- check Urine cs/Blood cs/covid/flu
-UA showing RBC greater than 100, unable to assess WBC. Nitrite positive.
- CXR clear
- start on empiric zosyn
4. DOUGLAS on CKD IIIA
-Patient baseline creatinine of 1 with GFR of 53 from 2018.� No interim lab to compare
-Creatinine of 1.2 today
-Patient post heart catheterization and with need of contrast at risk of EFFIE, continue monitoring
-Bladder scan ordered
5.� Acute transaminitis
-Minimal elevation of LFT, suspected hepatic congestion related
-Follow-up LFT for tomorrow
6.� Acute normocytic anemia
-Hemoglobin close to baseline, continue monitor
7.� Insulin-dependent diabetes mellitus
-Discussed with pharmacy to verify insulin dose, will be resumed accordingly
-maintained on ISS for now
8. Acute urinary retention
-Murrell to be removed, renal bladder scan ordered
Essential HTN
Hypothyroidism
HLD -statin intolerance
Depression
-Medication to be restarted post pharmacy confirmation
DVT PPX - lovenox
Full code
Total time spent : 54 mins
Anticipated Discharge: 24 - 48 hours
Subjective/Interval History
-
Date of Service: March 20, 2023
Resting comfortably in bed
No chest pain/shortness of breath episode
No other acute issues reported
Objective Data
-
Labs:
Laboratory Results
03/20/23
05:02
WBC 8.1
Hgb 11.5 L
Hct 35.0 L
Plt Count 235 D
Sodium 138
Potassium 3.8
Chloride 104
Carbon Dioxide 28
BUN 29 H
Creatinine 1.1 H
Glucose 104 H
Calcium 8.8
Vital Signs:
Vital Signs
Temp Pulse Resp BP Pulse Ox
98.2 F 92 20 135/84 97
03/20/23 11:15 03/20/23 11:16 03/20/23 11:15 03/20/23 11:16 03/20/23 11:54
I&O
03/19/23 03/20/23 03/21/23
06:59 06:59 06:59
Intake Total 720 / 720 530 / 530
Output Total 2350 / 2350 600 / 600
Balance -1630 / -1630 -70 / -70
Review of Systems
-
Respiratory: Reports No Symptoms
Cardiac: Reports No Symptoms
Abdomen/GI: Reports No Symptoms
Physical Exam
-
General: No Apparent Distress and Comfortable
HEENT: Negative Oxygen
Respiratory: Clear to Auscultation
Cardiac: Regular Rhythm and S1/S2; Negative Murmur or Rub
GI: Soft, Nontender and Nondistended
Musculoskeletal: No Edema
Neuro: Awake, Alert, Oriented, No Motor Deficits and Nonfocal/Grossly Intact
Psych: Calm
--- NOTE | 2023-03-20 15:03 | CARDSERVDEF ---
Echocardiogram with Definity completed after protocol screening completed. Allergies verified.
Patent IV site: _Left arm median cephalic 18 G PC____
IV site flushed with 0.9% NaCl pre and post administration.
Diluted bolus method utilized to enhance visualization of ventricular moss.
Total volume given: _4___ mL
Patient tolerated all procedures well without complications.
[2023-03-20 15:05] LABS: COVID-19 Antigen Negative (Negative)
--- NOTE | 2023-03-20 15:37 | PTOTSP ---
pt currently demonstrates ability to complete simple ADLs, functional transfers, ambulation with set up to no assistance. no overt deficits noted regarding self care. pt will have spouse's support for IADLs at d/c. no acute OT needs identified at
this time, will sign off.
[2023-03-20 17:17] LABS: Glucose - Point of Care 182 mg/dl (70-99)
[2023-03-20] MEDS: LOVENOX 40 MG SC (17:50)
[2023-03-20] MEDS: NOVOLOG FLEXPEN-MODERATE RESISTANCE 1 UNITS SC (17:50)
--- NOTE | 2023-03-20 19:21 | PTCARENOTE ---
Pt transferred from ICU. Pt OOB to chair and up in her room. She denies any discomfort. Murrell catheter removed prior to transfer to IVU, pt voiding in 300ml amounts without difficulty. Pt afebrile, COVID and FLU swabs negative. ECHO done at bedside.
Telemetry shows sinus rhythm at a rate @ 90-100.
[2023-03-20] MEDS: CYMBALTA DELAYED RELEASE 30 MG PO (19:42)
[2023-03-20 22:21] LABS: Glucose - Point of Care 169 mg/dl (70-99)
[2023-03-20] MEDS: LANTUS 0.200000000000000011 UNITS SC (22:29)
--- NOTE | 2023-03-20 22:39 | PTCARENOTE ---
Assumed care at 1900. Patient in bed resting. Assisted to the bathroom tachycardia and shortness of breath with ambulation, recovers with rest, orthopneic, HOB elevated. Low grade fever, concentrated yellow urine, 500 cc, call arthur in reach
[2023-03-21] VITALS (9 sets, daily range): BP systolic 106–167; BP diastolic 50–89; PULSE 112; O2SAT 97; BMI 40.1
[2023-03-21] MEDS: ZOSYN 50 IV ×4 (03:46→23:06)
[2023-03-21 04:19] LABS: Hematocrit 35.7 % (37.0-47.0); Mean Corp Hgb Conc. 33.6 g/dL (33.0-37.0); Mean Corpuscular Hgb 29.4 pg (27.0-31.0); Mean Corpuscular Volume 87.5 fL (81.0-99.0); Mean Platelet Volume 10.2 fL (7.4-10.4); Platelet Count 247 10^3/uL (130-400); Red Blood Cell Count 4.08 10^6/uL (4.20-5.40); Red Cell Dist. Width 13.1 % (11.5-14.5)
[2023-03-21 04:43] LABS: Blood Urea Nitrogen 25 mg/dl (7-17); Calcium 9.3 mg/dl (8.4-10.2); Carbon Dioxide 24 mmol/L (22-30); Chloride 100 mmol/L (98-107); Estimated Creatinine Clearance 40 ml/min; Glucose 137 mg/dl (70-99); Potassium 3.9 mmol/L (3.5-5.1); Sodium 137 mmol/L (135-145); eGFR 50.17
[2023-03-21] MEDS: SYNTHROID 75 MCG PO (05:46)
[2023-03-21 07:53] LABS: Glucose - Point of Care 138 mg/dl (70-99)
[2023-03-21] MEDS: NOVOLOG FLEXPEN-MODERATE RESISTANCE SC (08:55)
[2023-03-21] MEDS: CLARITIN 10 MG PO (08:56)
[2023-03-21] MEDS: BRILINTA 90 MG PO ×2 (08:56→19:48)
[2023-03-21] MEDS: MIRALAX 17 GRAMS PO (08:56)
[2023-03-21] MEDS: LOW STRENGTH ASPIRIN 81 MG PO (08:56)
[2023-03-21] MEDS: PROTONIX 40 MG PO (08:56)
--- NOTE | 2023-03-21 10:04 | W.PN.CD ---
Today's Communication / Plan
-
resume BP meds
cont ASA/Brilinta
to return next week for staged PCI
discharge planning
Impression / Plan
-
PCP: CHELSY Carreon
Primary Elementary Special Education Teacher: Neeraj Bolanos MD
Impression/Plan:
#Inferior STEMI/CAD - prior PCI LAD 2017, emergent LHC
- LHC 03/19/22 - RCA occluded ( suspected chronic) , successful stenting of 95%mid OM1
- echo 03/20: EF 55-60%, no sig valve disease
-she has residual LAD lesion: will need staged PCI
-discussed with patient and family: she will return as outpatient next week for this
-ASA/brilinta
-resume labetalol and valsartan
# fever: per hospitalist
#HTN - continue labetalol, valsartan
#Hyperlipidemia statin intolerance -stopped Zetia d/t cost, failed Praluent d/t cost, statins caused myalgias.
-can reassess cost of Praulent and Repatha or Leqvio as outpatient
#NIDDM - per hospitalist
#CKD3b - stable
#hypothyroidism
#chronic back pain
Physical Exam
Vital Signs/Labs
Vital Signs
Temp Pulse Resp BP Pulse Ox
97.5 F 103 16 151/70 97
03/21/23 07:46 03/21/23 08:45 03/21/23 07:46 03/21/23 07:45 03/21/23 07:46
03/20/23 03/21/23 03/22/23
06:59 06:59 06:59
Actual Weight 93.5 kg 93.1 kg
03/21/23 04:00
03/21/23 04:00
APTT 33.5 Sec (23.4-35.0) 03/19/23 12:57
Triglycerides 149 mg/dl (10-149) 03/20/23 05:02
LDL Cholesterol, Calc 133 mg/dl 03/20/23 05:02
VLDL Cholesterol, Calc 29 mg/dl (0-30) 03/20/23 05:02
HDL Cholesterol 63 mg/dl 03/20/23 05:02
03/19/23
12:57
Iso-E-Xoyhjimcmro Pept 4240
LAB Results
03/19/23 03/19/23 03/20/23
12:57 17:12 00:05
Troponin I 0.709 H* 2.750 H* D 7.990 H* D
03/20/23 03/20/23
07:59 11:54
Troponin I 12.000 H* D 11.400 H*
Physical Exam
Constitutional: No acute distress and Comfortable
EENT: Moist mucous membranes
Cardiovascular: Rhythm & rate is regular, Pedal edema is absent, JVD pressure is normal and Systolic murmur absent
Respiratory: Respiratory effort normal, Lungs clear to auscul. and Wheeze Absent
GI: Soft, Distention absent and Flat
Neuro/Psych: AO x 3
Data Reviewed
-
Date of Service: March 21, 2023
EKG: Other (Tele: SR 90s-100s)
Echo: Report Reviewed by me (per note)
Labs: Labs Reviewed by me
Total Time Spent with Patient (in minutes): 50 including discussion with patient, family, hospitalist, cathode ray tube salvage processor schedul
--- NOTE | 2023-03-21 10:22 | PTOTSP ---
PT will sign off as Pt is a functional baseline.
[2023-03-21] MEDS: DIOVAN 160 MG PO (11:20)
[2023-03-21] MEDS: TRANDATE 300 MG PO ×2 (11:21→22:19)
[2023-03-21 12:03] LABS: Glucose - Point of Care 205 mg/dl (70-99)
--- NOTE | 2023-03-21 12:07 | CM ---
Chart reviewed. Patient is independent of ADLS, lives with in a 1 STH, 1 AIDA, 0 DME but has a rolling walker at home if needed. Patient is not current with VN and said she is not interested at this time. Her daughter in law is a nurse.
Plan is for the patient to return home. CM to follow
--- NOTE | 2023-03-21 12:31 | W.PN.HOSP.TC ---
Today's Communication/Plan
-
continue zosyn while inpatient
possible discharge later today vs tomorrrow
Assessment / Plan
Assessment / Plan
1. STEMI
� � h/o of CAD/PCI
-Given with new onset of chest pain/dyspnea/Hypotension
-EKG showing ST segment elevation in lead II/III/aVF.
-S/p emergent LHC showing 100% occlusion of RCA, 90% occlusion of OM branch which was stented with RONALD 90% mid LAD lesion
-Trop 0.70 > LHC > 2.75 > 7.99 > 12 > 11.4
-Started on aspirin/Brilinta by cardiology
-Discussed with interventional cardiology, patient likely will require repeat heart cath for addressing LAD lesion
2.� Acute hypoxic respiratory failure
�� � Pulmonary edema
-Patient developed new dyspnea and hypoxia during heart catheterization and requiring BiPAP support
-ABG showing pH 7.24 pCO2 58 pO2 73 post cath
-Patient was monitored in ICU overnight and currently off of BiPAP/NC
3. Fever episode -resolved
- Urine cs/blood cs/flu/covid neg
- UA showing RBC greater than 100, unable to assess WBC. Nitrite positive.
- CXR clear
- on zosyn, no clear source except possible uti, will discharge on short course keflex.
4. DOUGLAS on CKD IIIA
-Patient baseline creatinine of 1 with GFR of 53 from 2018.� No interim lab to compare
-Creatinine down to 1.1
-Patient post heart catheterization and with need of contrast at risk of EFFIE, continue monitoring
-Bladder scan ordered
5.� Acute transaminitis
-Minimal elevation of LFT, suspected hepatic congestion related
-Follow-up LFT for tomorrow
6.� Acute normocytic anemia
-Hemoglobin close to baseline, continue monitor
7.� Insulin-dependent diabetes mellitus
-Discussed with pharmacy to verify insulin dose, will be resumed accordingly
-maintained on ISS for now
8. Acute urinary retention
-Murrell to be removed, renal bladder scan ordered
Essential HTN
Hypothyroidism
HLD -statin intolerance
Depression
-Medication to be restarted post pharmacy confirmation
DVT PPX - lovenox
Full code
Discussed care with cardiology
Anticipated Discharge: Within 24 hours
Subjective/Interval History
-
Date of Service: March 21, 2023
no chest pain/sob overnight
no other issues
Objective Data
-
Labs:
Laboratory Results
03/21/23
04:00
WBC 8.0
Hgb 12.0
Hct 35.7 L
Plt Count 247
Sodium 137
Potassium 3.9
Chloride 100
Carbon Dioxide 24
BUN 25 H
Creatinine 1.1 H
Glucose 137 H
Calcium 9.3
Vital Signs:
Vital Signs
Temp Pulse Resp BP Pulse Ox
97.4 F 98 18 167/89 97
03/21/23 11:12 03/21/23 11:20 03/21/23 11:12 03/21/23 11:20 03/21/23 11:12
I&O
03/20/23 03/21/23 03/22/23
06:59 06:59 06:59
Intake Total 720 / 720 870 / 870
Output Total 2350 / 2350 1600 / 1600
Balance -1630 / -1630 -730 / -730
Review of Systems
-
All other systems: Reviewed and negative
Physical Exam
-
General: No Apparent Distress and Comfortable
HEENT: Negative Oxygen
Respiratory: Clear to Auscultation
Cardiac: Regular Rhythm and S1/S2; Negative Murmur or Rub
GI: Soft, Nontender and Nondistended
Musculoskeletal: No Edema
Neuro: Awake, Alert, Oriented, No Motor Deficits and Nonfocal/Grossly Intact
Psych: Calm
[2023-03-21] MEDS: NOVOLOG FLEXPEN-MODERATE RESISTANCE 3 UNITS SC ×2 (12:46→17:09)
[2023-03-21 17:09] LABS: Glucose - Point of Care 217 mg/dl (70-99)
[2023-03-21] MEDS: LOVENOX 40 MG SC (18:23)
[2023-03-21] MEDS: CYMBALTA DELAYED RELEASE 30 MG PO (19:48)
[2023-03-21 21:39] LABS: Glucose - Point of Care 176 mg/dl (70-99)
[2023-03-21] MEDS: LANTUS 0.200000000000000011 UNITS SC (22:18)
[2023-03-22 05:10] VITALS: BP 130/69
[2023-03-22] MEDS: ZOSYN 50 IV (05:13)
[2023-03-22] MEDS: SYNTHROID 75 MCG PO (05:13)
[2023-03-22 05:35] LABS: Hemoglobin 10.6 g/dL (12.0-16.0); Mean Corp Hgb Conc. 33.1 g/dL (33.0-37.0); Mean Corpuscular Hgb 29.3 pg (27.0-31.0); Mean Corpuscular Volume 88.4 fL (81.0-99.0); Mean Platelet Volume 10.2 fL (7.4-10.4); Platelet Count 195 10^3/uL (130-400); Red Blood Cell Count 3.62 10^6/uL (4.20-5.40); White Blood Cell Count 6.2 10^3/uL (4.8-10.8)
[2023-03-22 05:54] LABS: Blood Urea Nitrogen 26 mg/dl (7-17); Calcium 8.9 mg/dl (8.4-10.2); Carbon Dioxide 25 mmol/L (22-30); Chloride 103 mmol/L (98-107); Estimated Creatinine Clearance 37 ml/min; Glucose 158 mg/dl (70-99); Potassium 3.8 mmol/L (3.5-5.1); Sodium 138 mmol/L (135-145); eGFR 45.19
[2023-03-22 07:07] VITALS: BP 113/66
[2023-03-22 07:10] LABS: Glucose - Point of Care 191 mg/dl (70-99)
[2023-03-22 07:53] LABS: Glucose - Point of Care 174 mg/dl (70-99)
[2023-03-22] MEDS: NOVOLOG FLEXPEN-MODERATE RESISTANCE 1 UNITS SC (07:53)
[2023-03-22] MEDS: DIOVAN 160 MG PO (09:08)
[2023-03-22] MEDS: BRILINTA 90 MG PO (09:09)
[2023-03-22] MEDS: TRANDATE 300 MG PO (09:09)
[2023-03-22] MEDS: LOW STRENGTH ASPIRIN 81 MG PO (09:09)
[2023-03-22] MEDS: PROTONIX 40 MG PO (09:09)
[2023-03-22] MEDS: CLARITIN 10 MG PO (09:09)
[2023-03-22] MEDS: MIRALAX PO (09:09)
--- NOTE | 2023-03-22 09:23 | W.PN.CD ---
Today's Communication / Plan
-
discharge planning for today
continue current meds
we will call patient Friday for date for staged PCI
please call us with additional questions
Impression / Plan
-
PCP: CHELSY Carreon
Primary Mill Beam Fitter: Neeraj Bolanos MD
Impression/Plan:
#Inferior STEMI/CAD - prior PCI LAD 2016, emergent LHC
- LHC 03/19/22 - RCA occluded ( suspected chronic) , successful stenting of 95%mid OM1
- echo 03/20: EF 55-60%, no sig valve disease
-she has residual LAD lesion: will need staged PCI
-discussed with patient and family: she will return as outpatient next week for this
-ASA/brilinta
-resumed labetalol and valsartan 03/21
#HTN - stable, continue labetalol, valsartan
#Hyperlipidemia statin intolerance -stopped Zetia d/t cost, failed Praluent d/t cost, statins caused myalgias.
-can reassess cost of Praulent and Repatha or Leqvio as outpatient
#NIDDM - per hospitalist
#CKD3b - stable
#hypothyroidism
#chronic back pain
Physical Exam
Vital Signs/Labs
Vital Signs
Temp Pulse Resp BP Pulse Ox
98.2 F 83 18 113/66 95
03/22/23 07:10 03/22/23 07:07 03/22/23 07:10 03/22/23 07:07 03/22/23 07:10
03/21/23 03/22/23 03/23/23
06:59 06:59 06:59
Actual Weight 93.1 kg
03/22/23 05:17
03/22/23 05:17
APTT 33.5 Sec (23.4-35.0) 03/19/23 12:57
Triglycerides 149 mg/dl (10-149) 03/20/23 05:02
LDL Cholesterol, Calc 133 mg/dl 03/20/23 05:02
VLDL Cholesterol, Calc 29 mg/dl (0-30) 03/20/23 05:02
HDL Cholesterol 63 mg/dl 03/20/23 05:02
03/19/23
12:57
Fqd-X-Pzccqjwkcnv Pept 4240
LAB Results
03/19/23 03/19/23 03/20/23
12:57 17:12 00:05
Troponin I 0.709 H* 2.750 H* D 7.990 H* D
03/20/23 03/20/23
07:59 11:54
Troponin I 12.000 H* D 11.400 H*
Physical Exam
Constitutional: No acute distress and Comfortable
EENT: Moist mucous membranes
Cardiovascular: Rhythm & rate is regular, Pedal edema is absent and JVD pressure is normal
Respiratory: Respiratory effort normal and Lungs clear to auscul.
Neuro/Psych: AO x 3
Data Reviewed
-
Date of Service: March 22, 2023
EKG: Other (Tele: SR 80s)
Labs: Labs Reviewed by me
--- NOTE | 2023-03-22 10:58 | W.PN.HOSP.TC ---
Today's Communication/Plan
-
d/c home
Assessment / Plan
Assessment / Plan
1. STEMI
� � h/o of CAD/PCI
-Given with new onset of chest pain/dyspnea/Hypotension
-EKG showing ST segment elevation in lead II/III/aVF.
-S/p emergent LHC showing 100% occlusion of RCA, 90% occlusion of OM branch which was stented with RONALD 90% mid LAD lesion
-Trop 0.70 > LHC > 2.75 > 7.99 > 12 > 11.4
-Started on aspirin/Brilinta by cardiology
-Discussed with interventional cardiology, patient likely will require repeat heart cath for addressing LAD lesion. patient will be brought back for elective LHC
2.� Acute hypoxic respiratory failure - resolved
�� � Pulmonary edema - resolved
-Patient developed new dyspnea and hypoxia during heart catheterization and requiring BiPAP support
-ABG showing pH 7.24 pCO2 58 pO2 73 post cath
-Patient was monitored in ICU overnight and currently off of BiPAP/NC
3. Fever episode -resolved
- Urine cs/blood cs/flu/covid neg
- UA showing RBC greater than 100, unable to assess WBC. Nitrite positive.
- CXR clear
- no clear source. d/c further abx at discharge.
4. DOUGLAS on CKD IIIA - improved
-Patient baseline creatinine of 1 with GFR of 53 from 2018.� No interim lab to compare
-Creatinine down to 1.1
-Patient post heart catheterization and with need of contrast at risk of EFFIE, continue monitoring
-Bladder scan ordered
5.� Acute transaminitis
-Minimal elevation of LFT, suspected hepatic congestion related
6.� Acute normocytic anemia
-Hemoglobin close to baseline, continue monitor
7.� Insulin-dependent diabetes mellitus
-Discussed with pharmacy to verify insulin dose, will be resumed accordingly
-maintained on ISS for now
8. Acute urinary retention
-Murrell to be removed, renal bladder scan ordered
Essential HTN
Hypothyroidism
HLD -statin intolerance
Depression
-Medication to be restarted post pharmacy confirmation
DVT PPX - Lovenox
Full code
More than 30 minutes spent in discharge including
Final examination of the patient
Summarizing hospital stay
Instructions for continuing care to all relevant caregivers
Preparation of discharge records, prescriptions, and referral forms
Total time spent (in minutes): 38 misn
Anticipated Discharge: Today
Subjective/Interval History
-
Date of Service: March 22, 2023
no issues overnight
Objective Data
-
Labs:
Laboratory Results
03/22/23
05:17
WBC 6.2
Hgb 10.6 L
Hct 32.0 L
Plt Count 195 D
Sodium 138
Potassium 3.8
Chloride 103
Carbon Dioxide 25
BUN 26 H
Creatinine 1.2 H
Glucose 158 H
Calcium 8.9
Vital Signs:
Vital Signs
Temp Pulse Resp BP Pulse Ox
98.2 F 83 18 113/66 95
03/22/23 07:10 03/22/23 07:07 03/22/23 07:10 03/22/23 07:07 03/22/23 07:10
I&O
03/21/23 03/22/23 03/23/23
06:59 06:59 06:59
Intake Total 870 / 870 1040 / 1040
Output Total 1600 / 1600 1300 / 1300
Balance -730 / -730 -260 / -260
Review of Systems
-
Respiratory: Reports No Symptoms
Cardiac: Reports No Symptoms
Abdomen/GI: Reports No Symptoms
Physical Exam
-
General: No Apparent Distress and Comfortable
HEENT: Negative Oxygen
Respiratory: Clear to Auscultation
Cardiac: Regular Rhythm and S1/S2; Negative Murmur or Rub
GI: Soft, Nontender and Nondistended
Musculoskeletal: No Edema
Neuro: Awake, Alert, Oriented, No Motor Deficits and Nonfocal/Grossly Intact
Psych: Calm
--- NOTE | 2023-03-22 13:53 | W.DCSUMMARY ---
Discharge Summary
Discharge Data
Date of Admission: 03/19/23
Date of Discharge: 03/22/23
-
Pending Results: No
Hospital Course
Discharging Physician : Dr Shree Tamayo
Disposition : Home with home care
Primary care physician : Dr Moon Cole
Principal Discharge diagnosis :
Inferior wall ST segment elevation myocardial infarction
Coronary disease
Acute hypoxic respiratory failure from flash pulmonary edema
Fever episode possibly from urinary source
Acute kidney injury on chronic kidney disease stage IIIa
Acute transaminitis
Acute normocytic anemia
Acute urinary retention
Chronic Discharge diagnosis :
Insulin-dependent diabetes mellitus
Essential hypertension
Hypothyroidism
Hyperlipidemia
Depression
Hospital Course :
Patient is a 82-year-old female with above-mentioned past medical history came to ER for having new onset of chest pain associated with dyspnea and hypertension. Patient have ongoing episodic chest pain for some time and was in endocrinology
office, patient started having significant chest pain and was sent to ER for further evaluation. EKG in ER showing ST segment elevation in lead II/III/aVF with ST segment depression in anteroseptal leads. Patient was troponin was elevated
marginally to 0.7. Patient was diagnosed to have inferior STEMI and cardiology was consulted emergently. Patient had an emergent left heart catheterization which showed an right carotid [employer]ILY [employer] RESIDENT and 95% mid OM blockage which felt to be the culprit
lesion. This was stented with xience stent. During procedure patient started to develop significant hypoxia there was concern of patient having flash pulmonary edema. An emergent ABG showing SpO2 of 73. Patient was placed on BiPAP and was
provided dose of IV Lasix. Patient was transferred to ICU for close monitoring. Patient hypoxia improved within next 24 hours and was slowly able to be weaned off of oxygen. Patient also developed new fever episode and sepsis workup with UA/urine
culture/blood culture/flu/COVID/chest x-ray was done without clear source. Mild UTI was a possibility and patient was maintained on Zosyn therapy. Patient fever episode resolved and his patient had 3 days of antibiotic therapy for possible
uncomplicated UTI no further antibiotics provided at discharge. Patient also had minimal renal dysfunction on top of underlying chronic kidney disease, creatinine normalized to baseline. Post medical stabilization patient was discharged home. Of
note patient have mid LAD lesion which will require to be addressed as well although patient preferred to have this done outpatient on elective basis. Cardiology office is planning to arrange this and contact patient on Friday after discharge.
Important imaging findings :
TTE
Normal left ventricular chamber size with hypokinesis of the�lateral/inferolateral wall with preserved systolic function.� Left ventricular�ejection fraction is 55-60%, visually. Diastolic function indeterminate due to�MAC.
Normal right ventricular size and function.�Normal atria. Mitral annular calcification with thickened mitral valve leaflets. Mitral sclerosis without stenosis. Aortic sclerosis without stenosis. The IVC is of normal size and demonstrates normal
respiratory variation.
No evidence of pulmonary hypertension.
Procedure findings :
LHC
1.� Successful PCI of a hazy 95% on mid OM1 lesion with a 3.0 x 18 mm Xience stephan point drug-eluting stent, postdilated using a 3.5 x 15 mm noncompliant balloon up to 18 pavan with an excellent angiographic result.
2.� 100% chronic total occlusion of the right coronary artery with faint right to right collaterals.
3.� Diffusely calcified and diseased left anterior descending artery with a high-grade 80 to 90% stenosis in the mid LAD and a 70% stenosis in the distal LAD proximal and distal to prior stent, respectively.
�
Discharge Plan
-
Patient Disposition: Home (Routine Discharge)
Discharge Diagnosis/Procedures: STEMI, CAD, CKDIIIA
Condition: Fair
Diet: Low Fat and Low Sodium
Activity: As tolerated
Driving Restrictions: No driving for 1 week
Bathing Restrictions: OK to Shower
Referrals:
[facility] [Outside] - 05/01/23 1:00 pm
(Cardiac Rehab Orientation appointment is on 05/01/2023 at 1 PM.
The Cardiac Rehab gym is located on the first floor of the [facility].)
Marie Gonzalez CRNP [Specified Professional Personl] - 04/04/23 9:20 am
Alvin Carrillo MD [Active] - in two to four weeks (Rule out AIME)
Caroline Cole CRNP [Family Provider] - in one week
Prescriptions:
New
Brilinta 90 mg tablet
90 mg PO BID Qty: 60 2RF
Continued
levothyroxine 75 MCG tablet
75 mcg PO SUMOTUTHFRSA@
loratadine 10 MG tablet
10 mg PO DAILY
docosahexaenoic acid-epa 1 CAP capsule
1,200 mg PO DAILY@1999
duloxetine 30 MG capsule,delayed release(DR/EC)
30 mg PO DAILY@1999
coenzyme Q10 [Co Q-10] 200 MG capsule
200 mg PO DAILY
PreserVision AREDS 1 CAP capsule
1 cap PO BID
biotin 5,000 MCG tablet,disintegrating
5,000 mcg PO DAILY@1999
levothyroxine 75 MCG tablet
150 mcg PO WE@
labetalol 300 MG tablet
300 mg PO BID
aspirin 81 MG tablet,chewable
81 mg PO DAILY@1999
cholecalciferol (vitamin D3) 1,000 UNITS tablet
2,000 units PO BID
valsartan 80 MG tablet
160 mg PO DAILY
repaglinide 2 mg Tablet
2 mg PO DAILY@1700
empagliflozin 25 mg Tablet
25 mg PO DAILY
multivitamin Tablet
1 tab PO DAILY
acetaminophen 500 mg Tablet
500 mg PO Q6H PRN (Reason: mild pain)
Changed
insulin degludec [Tresiba FlexTouch U-200] 200 UNIT/ML insulin pen
30 unit SQ HS Qty: 0 0RF
Discharge Orders:
Discharge Patient (As Directed); Ordered 03/22/23
Ordered By: Shree Tamayo
Care Plan Goals
Care Plan Goals:
Problem: Readiness for enhanced knowledge related to diagnosis and treatment plan
Goal: Understand your diagnosis and treatment plan needs, including medications if applicable.
Instructions: Know your diagnosis, underlying causes and treatment plan options, including medications if applicable. Consult with your health care team to learn about your diagnosis and treatment plan, including medications if applicable.
Discharge Date and Time
Discharge Date/Time: 03/22/23 12:55
== END 2023-03-22 12:55 | disposition home or self-care (01) | DRG 321 ==
LOC: IVU 15:21
PROVIDERS: Internal Medicine Interventional Cardiology; Nurse Practitioner Adult Health; ADMITTING PHYSICIAN Hospitalist; CONSULT PHYSICIAN Internal Medicine Critical Care Medicine; EMERGENCY PHYSICIAN Emergency Medicine; FAMILY PHYSICIAN Nurse Practitioner; OTHER PHYSICIAN Internal Medicine Cardiovascular Disease
PROC: B2111ZZ Fluoroscopy of Multiple Coronary Arteries using Low Osmolar Contrast (ICD-10-PCS; 2023-03-19)
PROC: B2151ZZ Fluoroscopy of Left Heart using Low Osmolar Contrast (ICD-10-PCS; 2023-03-19)
PROC: 027034Z Dilation of Coronary Artery, One Artery with Drug-eluting Intraluminal Device, Percutaneous Approach (ICD-10-PCS; 2023-03-19)
PROC: 5A09357 Assistance with Respiratory Ventilation, Less than 24 Consecutive Hours, Continuous Positive Airway Pressure (ICD-10-PCS; 2023-03-19)
PROC: 4A023N7 Measurement of Cardiac Sampling and Pressure, Left Heart, Percutaneous Approach (ICD-10-PCS; 2023-03-19)
DX: I21.19 ST elevation (STEMI) myocardial infarction involving other coronary artery of inferior wall (principal); J81.0 Acute pulmonary edema; J96.01 Acute respiratory failure with hypoxia; Z68.41 Body mass index [BMI] 40.0-44.9, adult; N17.9 Acute kidney failure, unspecified; I25.10 Atherosclerotic heart disease of native coronary artery without angina pectoris; E78.00 Pure hypercholesterolemia, unspecified; E11.42 Type 2 diabetes mellitus with diabetic polyneuropathy; E11.22 Type 2 diabetes mellitus with diabetic chronic kidney disease; N18.31 Chronic kidney disease, stage 3a; D63.1 Anemia in chronic kidney disease; E66.9 Obesity, unspecified; H35.30 Unspecified macular degeneration; I12.9 Hypertensive chronic kidney disease with stage 1 through stage 4 chronic kidney disease, or unspecified chronic kidney disease; E03.9 Hypothyroidism, unspecified; F32.A Depression, unspecified; G89.29 Other chronic pain; F41.9 Anxiety disorder, unspecified; M19.90 Unspecified osteoarthritis, unspecified site; R33.9 Retention of urine, unspecified; K21.9 Gastro-esophageal reflux disease without esophagitis; E11.65 Type 2 diabetes mellitus with hyperglycemia; Z11.52 Encounter for screening for COVID-19; Z79.4 Long term (current) use of insulin; Z79.82 Long term (current) use of aspirin; Z79.899 Other long term (current) drug therapy; Z95.5 Presence of coronary angioplasty implant and graft; Z82.49 Family history of ischemic heart disease and other diseases of the circulatory system
CPT/HCPCS: 71045; 76937; 80048; 80053; 80061; 81003; 81015; 82805; 82962; 83036; 83880; 84484; 85025; 85027; 85347; 85730; 87040; 87070; 87086; 87502; 87811; 93005; 93306; 93454; 94660; 97161; 97165; 99152; 99153; 99285; C1725; C1769; C1874; C1894; C9600; C9606; Q9957; Q9967